=== PATIENT | male | born 1970 | race Caucasian/White ===

== ENCOUNTER 2022-09-04 06:29 | Day surgery (SDC) | payer BC ==
[~2022-09-04 06:29] MED LIST: Lactated Ringers 1,000 ML IV SCH
[2022-09-04] MEDS ORDERED: Lidocaine 2% 5 ML SDV ONE (07:09)
[2022-09-04] MEDS ORDERED: Propofol 200 MG/20 ML SDV ONE (07:09)
[2022-09-04] MEDS ORDERED: fentaNYL 100 MCG/2 ML SDV ONE (07:09)
== END 2022-09-04 09:15 | disposition home or self-care (01) ==
LOC: MW.SDS 06:29
PROVIDERS: ATTEND Surgery
DX: Z12.11 Encounter for screening for malignant neoplasm of colon (principal); K57.30 Diverticulosis of large intestine without perforation or abscess without bleeding; K64.8 Other hemorrhoids; K63.5 Polyp of colon; I10 Essential (primary) hypertension; K21.9 Gastro-esophageal reflux disease without esophagitis; R74.8 Abnormal levels of other serum enzymes; G89.29 Other chronic pain; M54.9 Dorsalgia, unspecified; M19.90 Unspecified osteoarthritis, unspecified site; Z79.899 Other long term (current) drug therapy; Z98.890 Other specified postprocedural states
CPT/HCPCS: 45380; J2704; J3010; J7120; J3490